=== PATIENT | female | born 1930 | race Caucasian/White ===

== ENCOUNTER → 2017-05-26 | Outpatient (CLI) | payer OTHER ==
--- NOTE | 2017-05-28 11:37 | PCVCIMAG ---
APPROVED REPORT Exam: Nuclear Stress Test Indication: Chest pain, Dyspnea Patient Location: Out-Patient Stress Nurse: Magaly Taylor RN, Danyell Hancock RN NE Tech:Tamara Besven [facility] Ht: 5 ft 2 in Wt: 109 lbs BSA: 1.48 m2 HR: 75 bpm BP: 150/63 mmHg BMI: 19.9 Rhythm: NSR Medical History Medical History: HTN Medications: Atorvastatin, Plavix, Diltiazem Allergies: PCN Cardiac Risk Factors: Age Pretest Chest Pain Characteristics: No chest pain Exercise History: Physically active NM EXAM: Myocardial Perfusion REST/STRESS Imaging Protocol: Rest Tc-99m/Stress Tc-99m 1 day Resting Data Rest SPECT myocardial perfusion imaging was performed in supine position 45 minutes following the intravenous injection of 8.3 mCi of Tc-99m Sestamibi. Time of rest injection: 08 Date: 05/26/2017 Administration Route: IV Administration Site: Right Arm Pharmacologic Stress Pharmacologic stress test was performed by injecting Regadenoson 0.4 mg IV push followed by the intravenous injection of 24.5 mCi of Tc-99m Sestamibi. Time of stress injection: 1015 Date: 05/26/2017 Administration Route: IV Administration Site: Right Arm Gated Stress SPECT was performed 45 minutes after stress injection. The images were gated to evaluate regional wall motion and calculate left ventricular ejection fraction. Study Quality Study: Fair Artifact: Severe Increased GI uptake Study Data Post stress, the left ventricular ejection was 66%.. SSS: 21 SRS: 24 SDS: 6 TID = 0.49. Perfusion No evidence of stress induced ischemia or prior myocardial infarction. There is a small area of moderately reduced uptake in the apical segment which is seen on the stress images as well as the resting images and is likely due to the large amount of gastric uptake. Wall Motion Normal left ventricular size and function with no regional wall motion abnormalities. Nuclear Conclusion No evidence of stress induced ischemia or prior myocardial infarction. Normal left ventricular size and function with no regional wall motion abnormalities. Post stress, the left ventricular ejection was 66%.. No prior study available for comparison. Interpreted by: Alonso Ramos MD Electronically Approved: 05/27/2017 20:35:07 Stress Test Details Stress Test: Pharmacologic stress testing performed using 0.4 mg of regadenoson per 5 mL given IV over 10 seconds. Reason for pharmacologic stress test: physical limitation. HR Resting HR: 75 bpmMax Heart Rate (APMHR): 133 bpm Max HR Achieved: 108 bpmTarget HR (85% APMHR): 113 bpm % of APMHR: 81 Recovery HR: 96 bpm BP Resting BP: 150/63 mmHg Max BP: 122/56 mmHg ECG Resting ECG: Sinus Rhythm Stress ECG: Sinus Tachycardia ST Change: None Maximum ST Deviation: 0 mm Recovery ECG: Sinus Rhythm Recovery ST Change: Normal Recovery ST Deviation: 0 mm Clinical Reason for Termination: Completed protocol, Dyspnea Stress Symptoms: Dyspnea, Fatigue Exercise capacity: 1.0 METs Symptoms resolved during recovery. Stress ECG Conclusion Clinical: Non-ischemic ECG: Non-ischemic <Conclusion> Clinical: Non-ischemic ECG: Non-ischemic
== END | disposition home or self-care (01) ==
LOC: PCVCIMAG 08:09
PROVIDERS: ATTEND Internal Medicine Cardiovascular Disease
DX: I10 Essential (primary) hypertension (principal); R79.89 Other specified abnormal findings of blood chemistry; Z88.0 Allergy status to penicillin
CPT/HCPCS: 36415; 78452; 93017; A9500